=== PATIENT | female | born 1955 ===

== ENCOUNTER → 2021-12-20 | Outpatient (CLI) | payer MEDICARE, OTHER ==
--- NOTE | 2021-12-20 12:46 | KCIC ---
EXAMINATION: MRI LOWER EXTREMITY JOINT WITHOUT INDICATIONS: Right hip pain, lower back pain. Bilateral nerve pain in buttocks, right greater than l eft TECHNIQUE: Multiplanar multisequence MRI of the bilateral hips was obtained without contrast. COMPARISON: Right hip and pelvis radiograph 11/20/2021 FINDINGS: BONES AND CARTILAGE: No acute fracture. Marrow signal is normal. Articular cartilage is intact. LABRUM: Mild diffuse heterogeneity and blunting of the labrum bilaterally suspicious for degenerative tearing. MUSCLES, TENDONS, AND BURSAE: Mild bilateral gluteus minimus tendinopathy. Bilateral right gluteus me dius, hamstrings, iliopsoas, rectus femoris, and adductor tendons are intact. Muscles are normal. The ischiofemoral space is normal. Mild bilateral peritrochanteric edema. OTHER: No joint effusion or synovitis. The ligamentum teres is intact. Subcutaneous soft tissues norm al. IMPRESSION: 1. Mild bilateral gluteus minimus tendinopathy. 2. Mild degenerative tearing of the labrum bilaterally. EXAMINATION: MRI PELVIS WO INDICATIONS: Right hip pain, lower back pain. Nerve pain in buttocks, right greater than left.. TECHNIQUE: Multiplanar multisequence MRI of pelvis was obtained without contrast. COMPARISON: Right hip and pelvis radiograph 11/20/2021. FINDINGS: BONES: No acute fracture. Marrow signal is normal. The hips, pubic symphysis and sacroiliac joints ar e unremarkable. The visualized portion of the lower lumbar spine is unremarkable. MUSCLES, TENDONS, AND BURSAE: Mild bilateral gluteus medius and minimus tendinopathy. The bilateral g luteus medius hamstrings, iliopsoas, rectus femoris, and adductor tendons are intact. Muscles are nor mal. The ischiofemoral space is normal. No bursitis. OTHER: No joint effusion. Visualized intrapelvic contents are unremarkable. No inguinal lymphadenopat hy. No abnormality along the course of the sciatic nerves. IMPRESSION: Mild bilateral gluteus minimus tendinopathy. Otherwise unremarkable MRI of the pelvis. Electronically signed by: Shauna Juan MD (12/20/2021 12:44 PM) [id number]
--- NOTE | 2021-12-20 14:09 | KCIC ---
EXAM: MR lumbar spine CLINICAL INDICATION: RIGHT HIP PAIN, LBP, NERVE PAIN IN BUTTOCKS R>L. COMPARISON: None available. TECHNIQUE: Multiplanar multisequence MR images of the lumbar spine without contrast FINDINGS: The lumbar spine is normal in alignment. There is no acute fracture. Marrow signal is normal. There i s mild diffuse disc desiccation. The conus medullaris terminates at the superior endplate of L1. The cauda equina is normal. 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 There are mu ltiple T2 hyperintense cysts in the right kidney measuring up to 2.7 cm. At T12-L1: Small broad-based disc bulge. No canal or foraminal narrowing. Mild left facet arthrosis. At L1-L2: Small broad-based disc bulge, no canal or foraminal narrowing. Mild facet arthrosis. At L2-L3: Small broad-based disc bulge, no canal or foraminal narrowing. Mild facet arthrosis. At L3-L4: Small broad-based disc bulge. No canal or foraminal narrowing. Mild facet arthrosis. At L4-L5: There is a small broad-based disc bulge and mild facet arthrosis with ligamentum flavum thi ckening. Mild bilateral lateral recess narrowing and mild bilateral foraminal narrowing. No central c anal narrowing. At L5-S1: There is a tiny central disc protrusion. No canal or foraminal narrowing. Mild facet arthro sis. IMPRESSION:Mild degenerative disc disease, greatest at L4-L5 where there is mild foraminal and latera l recess narrowing. No canal stenosis. Electronically signed by: Shauna Juan MD (12/20/2021 2:07 PM) [id number]
== END ==
LOC: KCIC MRI 07:55
PROVIDERS: ATTEND Family Medicine
DX: S73.191A Other sprain of right hip, initial encounter (principal); S73.192A Other sprain of left hip, initial encounter; M76.01 Gluteal tendinitis, right hip; M76.02 Gluteal tendinitis, left hip; M47.817 Spondylosis without myelopathy or radiculopathy, lumbosacral region; M51.36 Other intervertebral disc degeneration, lumbar region; M51.27 Other intervertebral disc displacement, lumbosacral region; M48.061 Spinal stenosis, lumbar region without neurogenic claudication; G96.191 Perineural cyst; X58.XXXA Exposure to other specified factors, initial encounter; Y93.89 Activity, other specified; Y92.89 Other specified places as the place of occurrence of the external cause; Y99.8 Other external cause status
CPT/HCPCS: 72148; 72195; 73721-50